=== PATIENT | male | born 1950 | race African-American/Black ===

== ENCOUNTER 2020-06-20 08:14 | Outpatient (CLI) | payer MEDICARE, OTHER ==
[2020-06-21 12:22] LABS: SARS-CoV-2 MS2 Positive; SARS-CoV-2 N Gene Negative; SARS-CoV-2 S Gene Negative; SARS-CoV-2 by NAA Not Detected (NotDetected); SARS-CoV-2 orf1ab Negative
== END 2020-06-20 08:15 | disposition home or self-care (01) ==
LOC: LABBT 08:14
PROVIDERS: ATTEND Neurological Surgery
DX: Z01.812 Encounter for preprocedural laboratory examination (principal); Z11.59 Encounter for screening for other viral diseases; M48.02 Spinal stenosis, cervical region
CPT/HCPCS: 87635; U0003

== ENCOUNTER 2020-06-20 11:15 | Inpatient (IN) | payer MEDICARE ==
[2020-06-18 10:34] VITALS: BMI 27.3
--- NOTE | 2020-06-24 22:58 | HP ---
HISTORY OF PRESENT ILLNESS: Mr. Platt is a pleasant 70-year-old man referred to us by Dr. Wilkerson's office for evaluation of neck pain with radiculopathy and bilateral hand numbness. The patient reports that he has been instituting home exercises that matches with great effect as the numbness has started to sayra since starting. MRI from [facility] reveals multilevel stenosis moderately centrally and severe in the bilateral neural foramina from C3 through C6. He has attempted three epidural steroid injections with minimal efficacy. Exam is deferred secondary to telehealth visit. PAST MEDICAL HISTORY: Significant for chronic pain syndrome, arthritis, seasonal allergies, cataracts, and hepatitis. PAST SURGICAL HISTORY: Cubital tunnel release. CURRENT MEDICATIONS: 1. Jfax-wor-wncheca Tylenol. 2. Magnesium. 3. Vitamin E. 4. Vitamin D. 5. CoQ10. 6. Gabapentin. ALLERGIES: TO PENICILLIN. ASSESSMENT: Cervical radiculopathy. PLAN: Dr. Lopez met with the patient, reviewed imaging, advocated for C3 through C6 ACDF. He explained to the patient the risks, benefits, and alternatives to the procedure. The patient expressed understanding likely for surgery as discussed. I do believe the patient is mentally competent and capable of making medical decisions for himself. We will move forward with surgery as planned. Job ID: [id number]
[2020-06-25] MEDS ORDERED: Levofloxacin 500 mg/D5W 100 ml Premix Bag ONE (07:10)
[2020-06-25] MEDS ORDERED: Clindamycin/D5W 900 mg/50 ml Premix Bag ONE (07:10)
[2020-06-25] MEDS ORDERED: Fentanyl 100 MCG/2 ML VIAL ONE ×3 (07:20→11:13)
[2020-06-25] MEDS ORDERED: Midazolam HCl 2 mg/2 ml Vial ONE (07:20)
[2020-06-25] MEDS ORDERED: Thrombin 5000 UNITS/5 ML VIAL ONE (07:53)
[2020-06-25] MEDS ORDERED: Lidocaine 1% PF 5 ML VIAL ONE (09:13)
[2020-06-25] MEDS ORDERED: Ondansetron PF 4 MG/2 ML Vial ONE (09:13)
[2020-06-25] MEDS ORDERED: Glycopyrrolate 0.2 MG/ML 5 ML SYRINGE ONE (09:13)
[2020-06-25] MEDS ORDERED: Rocuronium Bromide 10 MG/ML (10ML VIAL) ONE (09:13)
[2020-06-25] MEDS ORDERED: PROPOFOL 200 MG/20 ML VIAL ONE (09:13)
[2020-06-25] MEDS ORDERED: Dexamethasone 20 MG/5 ML VIAL ONE (09:13)
[2020-06-25] MEDS ORDERED: Tamsulosin HCl 0.4 MG CAP ONE (10:52)
[2020-06-25] MEDS ORDERED: tiZANidine HCl 4 MG TAB ONE (12:12)
--- NOTE | 2020-06-25 15:00 | OP ---
DATE OF PROCEDURE: 06/25/2020 TABLET MAKING MACHINE OPERATOR HELPER: Luigi Hylton PA-C INDICATION: Pain. DIAGNOSIS: Cervical radiculopathy. PROCEDURE PERFORMED: Anterior cervical diskectomy and fusion, C3 through C6. ANESTHESIA: General. DESCRIPTION OF PROCEDURE: The patient was brought into the operating room and placed under general anesthesia. He was placed on table in a supine position. A transverse incision was planned over the lateral aspect of the neck on the right. After prepping and draping and after an appropriate preoperative pause, the incision was created. The underlying platysma muscle was identified and incised. A blunt tissue plane anterior to the sternocleidomastoid muscle was used to gain access to the prevertebral space. Self-retaining retractors were placed and an annulotomy was performed in the C5-C6 disk space. All disk material as well as anterior and posterior osteophytes were removed. After completing the decompression, a 7-mm lordotic PEEK cage packed with allograft and autograft material was placed within the interbody space. We then redirected our attention to the level above at C4-C5, where again an annulotomy was performed. The large anterior osteophytes were removed as was the disk material and posterior osteophytes. After completing the decompression, a 6-mm lordotic PEEK cage packed with allograft and autograft material was placed in the interbody space. We then redirected our attention to the level above, where an annulotomy was performed in the C3-C4 disk space. All disk material as well as anterior and posterior osteophytes were removed. After completing the decompression, the wound was irrigated. Hemostasis was maintained throughout. A 6-mm lordotic PEEK cage was placed. Several large anterior osteophytes were removed from the front of spine in order to create a flat surface for plating. In the end, I put a two-level plate from C3 to C5 as I was not happy with the way the plate conforms to the front of the spine with a three-level plate. A total of 6 screws were placed to secure the plate. Midline and lateral structures were inspected and found to be free from significant trauma. The wound was irrigated. Hemostasis was maintained throughout. The wound was then closed in anatomic layers, and a pressure dressing was applied. There were no known procedural complications. Job ID: [id number]
== END 2020-06-25 13:58 | disposition home or self-care (01) | DRG 473 ==
LOC: SURG A 06-25 06:31
PROVIDERS: ADMIT Neurological Surgery; ATTEND Neurological Surgery
PROC: 0RG20A0 Fusion of 2 or more Cervical Vertebral Joints with Interbody Fusion Device, Anterior Approach, Anterior Column, Open Approach (ICD-10-PCS; principal; 2020-06-25)
PROC: 0RB30ZZ Excision of Cervical Vertebral Disc, Open Approach (ICD-10-PCS; 2020-06-25)
DX: M48.02 Spinal stenosis, cervical region (principal); M50.11 Cervical disc disorder with radiculopathy, high cervical region; G89.4 Chronic pain syndrome; M19.90 Unspecified osteoarthritis, unspecified site; J30.2 Other seasonal allergic rhinitis; H40.9 Unspecified glaucoma; F17.210 Nicotine dependence, cigarettes, uncomplicated; F43.10 Post-traumatic stress disorder, unspecified; M25.78 Osteophyte, vertebrae; K75.9 Inflammatory liver disease, unspecified; Z79.899 Other long term (current) drug therapy; Z88.0 Allergy status to penicillin
CPT/HCPCS: 76000; C1713; C1776; J1956; J2250; J3010; J3490